=== PATIENT | male | born 1975 | race Caucasian/White ===

== ENCOUNTER 2017-03-24 10:17 | Emergency (ER) | payer OTHER ==
[~2017-03-24] VITALS: Ht 190.5 cm; Wt 102.1 kg
[~2017-03-24 10:17] MED LIST: AZULFIDINE500 MG PO; TRAZODONE HCL100 MG PO
[2017-03-24] MEDS ORDERED: SUBOXONE 2 MG-1 EAC2 SL (10:26)
== END 2017-03-24 18:07 | disposition short-term general hospital (02) ==
LOC: ED 10:17
DX: G83.4 Cauda equina syndrome (principal); Z87.891 Personal history of nicotine dependence; Z88.0 Allergy status to penicillin; Z79.899 Other long term (current) drug therapy
CPT/HCPCS: 72148; 80053; 85025; 96365; 96375; 99285; J1100; J1170; J2405; J7120

== ENCOUNTER 2020-04-14 16:44 | Emergency (ER) | payer MEDICARE, OTHER ==
[~2020-04-14] VITALS: Ht 190.5 cm; Wt 102.1 kg
[~2020-04-14 16:44] MED LIST changes: +SUBOXONE 2 MG-1 EAC2 SL
--- OUTSIDE RECORDS SUMMARY | 2020-04-14 16:46 | XMS ---
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 Parmjit has no Care Guidelines for this patient. Joe VISIT COUNT (12 MO.) 1 YONI Winter TOTAL 1 NOTE: Visits indicate total known visits. ED/UCC VISIT TRACKING (12 MO.) 04/14/2020 16:44 YONI Suero OR TYPE: Emergency COMPLAINT: - DIZZINESS, NAUSEA INPATIENT VISIT TRACKING (12 MO.) No inpatient visits to display in this time frame [id number]
[2020-04-14] MEDS ORDERED: BUPRENORPHIN-N1 EACH SL (17:11)
[2020-04-14] MEDS ORDERED: DIAZEPAM5 MG PO (17:11)
[2020-04-14] MEDS ORDERED: FLONASE ALLERG9.9 ML NAS (17:36)
[2020-04-14] MEDS ORDERED: ONDANSETRON ODT8 MG PO (17:36)
[2020-04-14] MEDS ORDERED: MECLIZINE HCL25 MG PO (17:36)
== END 2020-04-14 17:52 | disposition home or self-care (01) ==
LOC: ED 16:44
DX: R42 Dizziness and giddiness (principal); J06.9 Acute upper respiratory infection, unspecified; Z79.891 Long term (current) use of opiate analgesic; Z87.891 Personal history of nicotine dependence; Z88.0 Allergy status to penicillin; Z79.899 Other long term (current) drug therapy
CPT/HCPCS: 99283